=== PATIENT | female | born 1965 | race Caucasian/White ===

== ENCOUNTER 2020-06-15 10:25 | Outpatient (CLI) | payer BC ==
[2020-06-15 22:36] LABS: SARS-CoV-2 PCR by NAA Not Detected (NotDetected)
== END 2020-06-15 10:26 | disposition home or self-care (01) ==
LOC: CSHLAB 10:25
PROVIDERS: ATTEND Internal Medicine Gastroenterology
DX: Z20.822 Contact with and (suspected) exposure to COVID-19 (principal); Z12.11 Encounter for screening for malignant neoplasm of colon
CPT/HCPCS: 87635; U0003; U0005

== ENCOUNTER 2020-06-20 05:56 | Day surgery (SDC) | payer BC ==
[2020-06-17 12:15] VITALS: BMI 25.0
[2020-06-20] MEDS ORDERED: Lidocaine 1% MPF 2 ML VIAL ONE (06:44)
[2020-06-20] MEDS ORDERED: Lidocaine 2% MPF 10 ML AMP (For Epidural Use) ONE (07:07)
[2020-06-20] MEDS ORDERED: PROPOFOL 40 ML ONE (07:07)
[2020-06-20] MEDS ORDERED: PROPOFOL 20 ML ONE (07:57)
== END 2020-06-20 09:05 | disposition home or self-care (01) ==
LOC: CSHSDC 05:56
PROVIDERS: ATTEND Internal Medicine Gastroenterology
PROC: 0DJD8ZZ Inspection of Lower Intestinal Tract, Via Natural or Artificial Opening Endoscopic (ICD-10-PCS; principal; 2020-06-20)
DX: Z12.11 Encounter for screening for malignant neoplasm of colon (principal); K57.30 Diverticulosis of large intestine without perforation or abscess without bleeding; K62.89 Other specified diseases of anus and rectum; E03.9 Hypothyroidism, unspecified
CPT/HCPCS: J2704

== ENCOUNTER 2021-12-04 12:12 | Outpatient (CLI) | payer BC ==
[2021-12-04 13:40] LABS: Hemoglobin 13.3 g/dL (12.0-15.5); Mean Corpuscular HGB CONC 33.6 g/dL (32.0-36.0); Mean Corpuscular Hemoglobin 30.6 pg (27.0-33.0); Mean Platelet Volume 9.8 fl (7.4-10.4); Platelet Count 396 10x3/uL (150-450); RBC Distribution Width 11.9 % (11.5-14.5); Red Blood Cell (RBC) Count 4.35 10x6/uL (3.90-5.03); White Blood Cell (WBC) Count 6.6 10x3/uL (3.5-10.5)
[2021-12-04 14:05] LABS: Anion Gap 15 mmol/L (10-20); BUN (Urea Nitrogen) 8 mg/dL (9.8-20.1); Calc. Creatinine Clearance 0 mL/min (70-130); Calcium 10.1 mg/dL (7.8-10.44); Carbon Dioxide 28 mmol/L (22-29); Chloride 103 mmol/L (98-107); Estimated GFR 91; Glucose 88 mg/dL (70-105); Potassium 4.3 mmol/L (3.5-5.1); Sodium 142 mmol/L (136-145)
== END 2021-12-04 12:13 | disposition home or self-care (01) ==
LOC: CSHLAB 12:12
PROVIDERS: ATTEND Podiatrist Foot & Ankle Surgery
DX: Z01.818 Encounter for other preprocedural examination (principal); Z20.822 Contact with and (suspected) exposure to COVID-19
CPT/HCPCS: 80048; 85027; 87811; 93005; 93010

== ENCOUNTER 2021-12-06 09:01 | Day surgery (SDC) | payer BC ==
[2021-12-04 15:32] VITALS: BMI 22.1
[2021-12-06] MEDS ORDERED: Bupivacaine PF 0.5% 30 ML VIAL ONE (10:07)
[2021-12-06] MEDS ORDERED: CEFAZOLIN 1 GM VIAL ONE (10:08)
[2021-12-06] MEDS ORDERED: Neomycin-Polymyxin 1 ML AMP ONE (10:08)
[2021-12-06] MEDS ORDERED: Ondansetron PF 4 MG/2 ML Vial ONE (10:34)
[2021-12-06] MEDS ORDERED: Fentanyl 100 MCG/2 ML VIAL ONE ×2 (10:34→12:17)
[2021-12-06] MEDS ORDERED: Dexamethasone 20 MG/5 ML VIAL ONE (10:34)
[2021-12-06] MEDS ORDERED: PROPOFOL 20 ML ONE (10:34)
[2021-12-06] MEDS ORDERED: Ketorolac Tromethamine 30 MG/ML VIAL ONE (10:34)
[2021-12-06] MEDS ORDERED: Lidocaine 2% PF 5 ML VIAL ONE (10:34)
[2021-12-06] MEDS ORDERED: Midazolam HCl 2 mg/2 ml Vial ONE (10:34)
[2021-12-06] MEDS ORDERED: Meperidine HCl/PF 25 MG/ML VIAL ONE (12:30)
== END 2021-12-06 13:52 | disposition home or self-care (01) ==
LOC: CSHSDC 09:01
PROVIDERS: ATTEND Podiatrist Foot & Ankle Surgery
PROC: 0QSP04Z Reposition Left Metatarsal with Internal Fixation Device, Open Approach (ICD-10-PCS; principal; 2021-12-06)
DX: M20.12 Hallux valgus (acquired), left foot (principal); Z79.52 Long term (current) use of systemic steroids; Z79.899 Other long term (current) drug therapy; Z20.822 Contact with and (suspected) exposure to COVID-19; Z98.51 Tubal ligation status; Z98.890 Other specified postprocedural states
CPT/HCPCS: J0690; J1100; J1885; J2001; J2175; J2250; J2405; J2704; J3010; S0020